=== PATIENT | male | born 1980 | race Caucasian/White ===

== ENCOUNTER → 2021-09-02 16:51 | Outpatient (CLI) | payer OTHER, SELFPAY ==
--- NOTE | 2021-09-02 | DI.MRI.S_ITS ---
PROCEDURE: MR SHOULDER LT WO CON INDICATIONS: Other sprain of left shoulder joint, subsequent en TECHNIQUE: Noncontrast oblique coronal T2 fast spin echo with fat saturation, oblique sagittal T1 spin echo and T2 fast spin echo with fat saturation, axial T1 spin echo and T2 fast spin echo with fat saturation through the shoulder. COMPARISON: None. FINDINGS: Image quality: Excellent. Rotator cuff: Mild T2 signal elevation within the supraspinatus and infraspinatus tendons at the humeral insertion sites extending to the musculotendinous junction, indicating tendinopathy. Subscapularis, supraspinatus tendons are intact. Low-grade partial-thickness intrasubstance tearing of the anterior and mid infraspinatus tendon at the humeral insertion site extending to the musculotendinous junction. Teres minor tendon is intact. No rotator cuff atrophy. Bones and bursae: Minimally displaced fracture of the greater tuberosity of the humeral head with mild surrounding ill-defined T2 signal elevation, consistent with contusion. Moderate acromioclavicular joint degeneration. The acromion demonstrates conventional anatomy, without an os acromiale. No pathologic subacromial-subdeltoid or subcoracoid bursal fluid is present. Capsule and soft tissues: Undercutting of the posterior labrum is present. The long head of the biceps tendon demonstrates normal location and morphology. The rotator interval appears normal, without fibrosis. The coracohumeral ligament is normal in thickness. IMPRESSION: 1. Minimally displaced greater tuberosity fracture. 2. Supraspinatus and infraspinatus tendinopathy. Superimposed low-grade tearing of the infraspinatus. No full-thickness rotator cuff tear. 3. Posterior labral tearing. 4. Acromioclavicular joint osteoarthritis. Dictated by: Madalyn Cody M.D. on 09/03/2021 at 8:26 Approved by: Madalyn Cody M.D. on 09/03/2021 at 8:29
== END ==
PROVIDERS: Referring Provider Counselor Mental Health; Visit Provider Counselor Mental Health
DX: S42.355D Nondisplaced comminuted fracture of shaft of humerus, left arm, subsequent encounter for fracture with routine healing (principal); S43.492D Other sprain of left shoulder joint, subsequent encounter; S43.492A Other sprain of left shoulder joint, initial encounter; M19.012 Primary osteoarthritis, left shoulder
CPT/HCPCS: 73221

== ENCOUNTER 2022-07-28 10:52 | Emergency (ER) | payer MEDICARE, OTHER, SELFPAY ==
[2022-07-28 10:58] VITALS: BP 137/86; PULSE 82; RESP 15; TEMP 36.4; O2SAT 97; BMI 29.7
--- NOTE | 2022-07-28 11:17 | PC.NURSE ---
Two days of lower back pain, more on the right. Denies radiation, numbness/tingling or trouble with bowel movements/urination. Also reports one episode of bilateral ring/pinky finger numbness that went up to his elbows that is now resolved. Has not taken anything for pain today. Tried naproxen, heat/cold yesterday.
--- NOTE | 2022-07-28 12:09 | ED.BACK ---
HPI - Back Pain/Injury <Ciro Velázquez PA-C - Last Filed: 07/28/22 12:32> General Chief Complaint: Back Pain/Injury Stated Complaint: threw back out T-2 Time Seen by Provider: 07/28/22 12:08 Source: patient History of Present Illness HPI Narrative: 42-year-old male presents to the ED with 3 days of right-sided lower back pain. Patient denies any trauma. Patient states that he was seen by a chiropractor thrice last week for readjustments to realign his hips. Patient started experiencing right-sided lower back pain 3 days ago, had the 3rd session with a chiropractor yesterday after which his pain markedly worsened. Pain does not radiate. Patient denies numbness, tingling, weakness, urinary hesitancy, urinary incontinence, bowel incontinence. Patient denies injection drug use. Related Data Previous Rx's Medication Instructions Recorded methocarbamol 1,000 mg tablet 1,500 mg PO TID 3 days #14 tabs 07/28/22 Allergies Allergy/AdvReac Type Severity Reaction Status Date / Time morphine Allergy Verified 07/28/22 11:03 Review of Systems <Ciro Velázquez PA-C - Last Filed: 07/28/22 12:32> Review of Systems ROS Unobtainable: All systems reviewed & are unremarkable except as noted in HPI and below Constitutional Constitutional: Denies chills, Denies fatigue, Denies fever(s), Denies frequent falls, Denies lethargy and Denies weakness Eyes Eyes: Denies change in vision, Denies eye discharge, Denies irritation and Denies loss of vision ENT Ears, Nose, Mouth, and Throat: Denies change in voice, Denies dizziness, Denies neck pain, Denies sore throat and Denies throat swelling Cardiovascular Cardiovascular: Denies chest pain, Denies irregular heart rhythm, Denies lightheadedness, Denies palpitations, Denies dyspnea, Denies dyspnea on exertion and Denies orthopnea Respiratory Respiratory: Denies cough, Denies dyspnea, Denies dyspnea on exertion and Denies wheezing Gastrointestinal Gastrointestinal: Denies abdominal pain, Denies change in bowel habits, Denies diarrhea, Denies nausea and Denies vomiting Genitourinary Genitourinary: Denies hematuria, Denies flank pain, Denies urinary incontinence and Denies urinary urgency Musculoskeletal Musculoskeletal: Reports back pain, Denies muscle weakness, Denies neck pain, Denies numbness and Denies tingling Integumentary/Breasts Skin/Breast: Denies pruritus, Denies erythema, Denies rash and Denies wounds Neurologic Neurologic: Denies behavioral changes, Denies confusion, Denies dizziness, Denies frequent falls, Denies loss of vision, Denies numbness, Denies tingling and Denies weakness Psychiatric Psychiatric: Denies anxiety, Denies behavioral changes, Denies confusion, Denies depression, Denies homicidal ideation and Denies suicidal ideation Endocrine Endocrine: Denies fatigue, Denies flushing and Denies palpitations Hematologic/Lymphatic Hematologic/Lymphatic: Denies easy bruising Allergic/Immunologic Allergic/Immunologic: Denies urticaria, Denies throat swelling and Denies wheezing Patient History <Ciro Velázquez PA-C - Last Filed: 07/28/22 12:32> Social History Smoking Status: Unknown if ever smoked Smoking Status: Unknown if ever smoked alcohol intake frequency: holidays/special occasions only Substance Use Type: marijuana Exam <Ciro Velázquez PA-C - Last Filed: 07/28/22 12:32> Narrative Exam Narrative: Const General:?cooperative, healthy appearing and comfortable [facility] Head:?normal to inspection Ears:?hearing grossly normal bilaterally Nose:?external nose normal Face and sinus:?normal facial exam and sinuses nontender Mouth:?oral mucosae normal Throat:?posterior oropharynx normal Eyes General:?appearance normal, both eyes and all related structures Neck Neck:?normal visual inspection and no lymphadenopathy noted Resp Effort & Inspection:?normal respiratory effort Auscultation:?clear to auscultation bilaterally Cardio Rate:?regular rate Rhythm:?regular rhythm Musculoskeletal No midline tenderness to palpation. No paraspinal tenderness to palpation. Negative SLR, cross SLR. Strength and sensation intact. There is full range of motion. Gait is normal. Patient is neurovascularly intact. Skin is intact. Neuro General:?patient alert, patient awake and patient oriented x3 Initial Vital Signs Initial Vital Signs: Vital Signs Temperature 97.6 F 07/28/22 10:58 Pulse Rate 82 07/28/22 10:58 Respiratory Rate 15 07/28/22 10:58 Blood Pressure 137/86 07/28/22 10:58 Pulse Oximetry 97 07/28/22 10:58 Oxygen Delivery Method Room Air 07/28/22 10:58 <DO Renata Rosales Last Filed: 07/28/22 13:07> Initial Vital Signs Initial Vital Signs: Vital Signs Temperature 97.6 F 07/28/22 10:58 Pulse Rate 82 07/28/22 10:58 Respiratory Rate 15 07/28/22 10:58 Blood Pressure 137/86 07/28/22 10:58 Pulse Oximetry 97 07/28/22 10:58 Oxygen Delivery Method Room Air 07/28/22 10:58 Course <Ciro Velázquez PA-C - Last Filed: 07/28/22 12:32> Orders Ordered: Discontinued Medications Lidocaine (Lidocaine Patch 1 Each Adh..Patch) 1 each TOP NOW ONE Stop: 07/28/22 12:26 Last Admin: 07/28/22 12:58 Dose: 1 each Documented By: MONSE Vital Signs Vital signs: Vital Signs - 8 hr 07/28/22 10:58 Temperature 97.6 F Pulse Rate 82 Respiratory Rate 15 Blood Pressure 137/86 Pulse Oximetry 97 Oxygen Delivery Method Room Air <DO Renata Rosales Last Filed: 07/28/22 13:07> Orders Ordered: Discontinued Medications Lidocaine (Lidocaine Patch 1 Each Adh..Patch) 1 each TOP NOW ONE Stop: 07/28/22 12:26 Last Admin: 07/28/22 12:58 Dose: 1 each Documented By: MONSE Vital Signs Vital signs: Vital Signs - 8 hr 07/28/22 10:58 Temperature 97.6 F Pulse Rate 82 Respiratory Rate 15 Blood Pressure 137/86 Pulse Oximetry 97 Oxygen Delivery Method Room Air MDM - Back Pain/Injury <EVAN Guevara Last Filed: 07/28/22 12:32> Lab Data Labs: Urine Dip Bedside Urine Glucose Negative Bedside Urine Bilirubin - Negative Bedside Urine Ketone - Negative Urine Specific [place] 1.005 Bedside Urine Occult Blood - Negative Bedside Urine pH 6 Bedside Urine Protein - Negative Bedside Urine Urobilinogen - Negative Bedside Urine Nitrite - Negative Bedside Urine Leukocytes - Negative Esterase MDM Narrative Medical decision making narrative: 42-year-old male presents to the ED with 3 days of right-sided lower back pain. Physical exam reassuring, patient is neurovascularly intact, no urinary hesitancy, no numbness, tingling, weakness. There is no midline tenderness to palpation. Gait is normal. Patient's symptoms are likely due to a musculoskeletal sprain/strain. Will prescribe methocarbamol to take with ibuprofen/Aleve. Recommend lidocaine patches, heat. Patient agrees to follow-up with PCP as soon as possible. ED return precautions were discussed with patient. Patient verbalized understanding. Medical records reviewed: Yes <Will Wagner DO - Last Filed: 07/28/22 13:07> Lab Data Labs: Urine Dip Bedside Urine Glucose Negative Bedside Urine Bilirubin - Negative Bedside Urine Ketone - Negative Urine Specific [place] 1.005 Bedside Urine Occult Blood - Negative Bedside Urine pH 6 Bedside Urine Protein - Negative Bedside Urine Urobilinogen - Negative Bedside Urine Nitrite - Negative Bedside Urine Leukocytes - Negative Esterase Discharge Plan Departure Patient Disposition: Home Clinical Impression: Strain of lumbar region Instructions: DI for Back Strain or Sprain Activity Restrictions/Additional Instructions: You were evaluated in the ED today for lower back pain. Your physical exam was reassuring, it appears that your back pain is due to a musculoskeletal sprain/strain of the lower back. You may take ibuprofen/Aleve along with methocarbamol for pain relief. You may also apply lidocaine patches (salonpas), apply heat packs. Please follow-up with your PCP as soon as possible for further evaluation and PT referral. Return to the ED if you experience urinary difficulties, numbness, tingling, weakness. Prescriptions: New methocarbamol 1,000 mg tablet 1,500 mg PO TID 3 Days Qty: 14 0RF Referrals: Galina Irizarry, DATA CONVERSION OPERATOR-C [Primary Care Provider] - Stand Alone Forms: Patient Portal/API, Work Release Note <Will Wagner DO - Last Filed: 07/28/22 13:07> Cosign ED Attending Cosignature Attestation: Dr Wagner Co-Sign Statement: I was available for consultation during this patient's emergency department visit. This chart is signed by myself for administrative purposes only. I did not have direct contact with this patient during this visit. They were seen independently by the APC.
[2022-07-28] MEDS: LIDOCAINE PATCH 1 EACH ADH..PATCH TOP (12:58)
[2022-07-28 13:07] VITALS: BP 137/86; PULSE 81; RESP 18; O2SAT 96
== END 2022-07-28 13:08 | disposition home or self-care (01) ==
PROVIDERS: Emergency Provider Student in an Organized Health Care Education/Training Program; PCP Nurse Practitioner Family
DX: S39.012A Strain of muscle, fascia and tendon of lower back, initial encounter (principal); X58.XXXA Exposure to other specified factors, initial encounter
CPT/HCPCS: 81003; 99282